=== PATIENT | female | born 2000 | race Caucasian/White ===

== ENCOUNTER 2021-06-29 17:46 | Emergency (ER) | payer OTHER ==
[~2021-06-29] VITALS: Ht 157.5 cm; Wt 79.5 kg
[2021-06-29] MEDS ORDERED: NEXP1IMP SC (17:53)
[2021-06-29] MEDS ORDERED: IBUP200T46 PO (17:53)
[2021-06-29] MEDS ORDERED: CELE20TA PO (17:53)
[2021-06-29 19:06] LABS: BASO % 0.3 % (0.0-1.0); EOS # 0.1 10^3/uL (0.0-0.5); EOS % 0.9 % (0.0-3.0); LYMPH # 3.2 10^3/uL (1.5-5.0); LYMPH % 30.3 % (24.0-44.0); MEAN CORPUSCULAR HEMOGLOBIN 29.1 pg (27.0-33.0); MEAN CORPUSCULAR HGB CONC 33.3 g/dl (32.0-36.5); MEAN CORPUSCULAR VOLUME 87.3 fl (80.0-96.0); MONO # 0.6 10^3/uL (0.0-0.8); MONO % 5.5 % (2.0-8.0); NEUTROPHILS # 6.6 10^3/uL (1.5-8.5); NEUTROPHILS % 62.8 % (36.0-66.0); PLATELET COUNT, AUTOMATED 381 10^3/uL (150-450); RED BLOOD COUNT 4.81 10^6/uL (4.00-5.40); WHITE BLOOD COUNT 10.5 10^3/uL (4.0-10.0)
[2021-06-29 19:33] LABS: ALBUMIN 4.2 GM/DL (3.2-5.2); ALT/SGPT 41 U/L (12-78); BILIRUBIN,DIRECT 0.1 MG/DL (0.0-0.2); BILIRUBIN,TOTAL 0.8 MG/DL (0.2-1.0); BLOOD UREA NITROGEN 11 MG/DL (7-18); CALCIUM LEVEL 9.3 MG/DL (8.5-10.1); CARBON DIOXIDE LEVEL 28 MEQ/L (21-32); CHLORIDE LEVEL 106 MEQ/L (98-107); CREATININE FOR GFR 0.77 MG/DL (0.55-1.30); GLOMERULAR FILTRATION RATE > 60.0 (>60); GLUCOSE, FASTING 80 MG/DL (70-100); LIPASE 71 U/L (73-393); POTASSIUM SERUM 4.3 MEQ/L (3.5-5.1); SODIUM LEVEL 139 MEQ/L (136-145); TOTAL PROTEIN 8.2 GM/DL (6.4-8.2)
[2021-06-29 19:34] LABS: HCG, SERUM QUALITATIVE NEGATIVE (NEGATIVE)
[2021-06-29] MEDS ORDERED: KETOROLAC TROMETHAMINE 10 MG TAB PO ONE (20:05)
[2021-06-29 20:17] LABS: C REACTIVE PROTEIN QUANTITATIV 1.03 MG/DL (0.00-0.30)
[2021-06-29 20:45] LABS: ERYTHROCYTE SEDIMENTATION RATE 8 mm/hr (0-20)
[2021-06-29] MEDS ORDERED: ISOVUE-370 76% 100ML VIAL As Ordered ONE (21:13)
[2021-06-29 21:19] LABS: GLUCOSE, URINE (UA) MANUAL NEGATIVE (NEGATIVE); KETONE, URINE MANUAL 2+ mg/dL (NEGATIVE); UROBILINOGEN, URINE MANUAL NORMAL (NORMAL)
[2021-06-29 21:20] LABS: BILIRUBIN, URINE MANUAL NEGATIVE (NEGATIVE)
[2021-06-29 21:27] LABS: RBC, URINE 0-1 /hpf (0-3)
[2021-06-29 21:28] LABS: AMORPHOUS SEDIMENT, URINE SMALL AMOUNT (NEGATIVE); BACTERIA, URINE NONE SEEN; HYALINE CAST, URINE NONE SEEN /lpf (0-1); SQUAMOUS EPITHELIAL CELL URINE MOD AMOUNT /hpf (SMALL AMT)
[2021-06-29 22:48] LABS: GC DNA AMPLIFICATION NEGATIVE (NEGATIVE)
[2021-06-29] MEDS ORDERED: IBUP80TA PO (22:56)
[2021-06-29 23:41] VITALS: BP 136/78
== END 2021-06-29 23:52 | disposition home or self-care (01) ==
LOC: M ED 17:46
DX: S39.011A Strain of muscle, fascia and tendon of abdomen, initial encounter (principal); X58.XXXA Exposure to other specified factors, initial encounter; Y92.9 Unspecified place or not applicable; Y93.9 Activity, unspecified; Y99.9 Unspecified external cause status; M48.061 Spinal stenosis, lumbar region without neurogenic claudication; M51.26 Other intervertebral disc displacement, lumbar region; R11.0 Nausea; R19.7 Diarrhea, unspecified; Z79.899 Other long term (current) drug therapy
CPT/HCPCS: 36415; 74177; 76830; 76856; 76857; 80048; 80076; 81000; 81015; 83690; 84703; 85025; 85652; 86140; 87086; 87210; 87808; 87810; 87850; 93976; 99284; Q9967

== ENCOUNTER 2023-08-08 20:12 | Emergency (ER) | payer OTHER ==
[~2023-08-08] VITALS: Ht 157.5 cm; Wt 83.1 kg
[~2023-08-08 20:12] MED LIST: CELE20TA PO; ETON68IM SC; IBUP200T46 PO; IBUP80TA PO
[2023-08-08 22:11] LABS: BASO # 0.1 10^3/uL (0.0-0.2); BASO % 0.4 % (0.0-1.0); EOS # 0.2 10^3/uL (0.0-0.5); EOS % 1.3 % (0.0-3.0); HEMATOCRIT 36.7 % (36.0-47.0); HEMOGLOBIN 12.6 g/dl (12.0-15.5); LYMPH # 3.5 10^3/uL (1.5-5.0); LYMPH % 28.5 % (24.0-44.0); MEAN CORPUSCULAR HEMOGLOBIN 30.3 pg (27.0-33.0); MEAN CORPUSCULAR HGB CONC 34.3 g/dl (32.0-36.5); MEAN CORPUSCULAR VOLUME 88.2 fl (80.0-96.0); MONO # 0.8 10^3/uL (0.0-0.8); MONO % 6.6 % (2.0-8.0); NEUTROPHILS # 7.7 10^3/uL (1.5-8.5); PLATELET COUNT, AUTOMATED 398 10^3/uL (150-450); RED BLOOD COUNT 4.16 10^6/uL (4.00-5.40); WHITE BLOOD COUNT 12.2 10^3/uL (4.0-10.0)
[2023-08-08 22:35] VITALS: BP 114/71; TEMP 97.3; O2SAT 98
[2023-08-08 22:45] LABS: BLOOD UREA NITROGEN 10 MG/DL (9-23); CALCIUM LEVEL 9.1 MG/DL (8.5-10.1); CARBON DIOXIDE LEVEL 27 MMOL/L (20-31); CHLORIDE LEVEL 104 MMOL/L (98-107); CREATININE FOR GFR 0.55 MG/DL (0.55-1.30); GLOMERULAR FILTRATION RATE > 60.0 (>60); GLUCOSE, FASTING 90 MG/DL (60-100); SODIUM LEVEL 138 MMOL/L (136-145)
== END 2023-08-09 00:57 | disposition home or self-care (01) ==
LOC: M ED 20:12
DX: O20.0 Threatened abortion (principal); F32.A Depression, unspecified; F41.9 Anxiety disorder, unspecified; Z91.010 Allergy to peanuts; Z79.899 Other long term (current) drug therapy; Z3A.01 Less than 8 weeks gestation of pregnancy

== ENCOUNTER 2024-03-05 21:09 | Emergency (ER) | payer OTHER ==
[2024-03-05 21:29] VITALS: TEMP 97.5
[2024-03-05 21:57] LABS: BASO % 0.2 % (0.0-1.0); EOS # 0.1 10^3/uL (0.0-0.5); EOS % 1.1 % (0.0-3.0); HEMATOCRIT 32.3 % (36.0-47.0); HEMOGLOBIN 11.2 g/dl (12.0-15.5); LYMPH # 2.6 10^3/uL (1.5-5.0); LYMPH % 21.2 % (24.0-44.0); MEAN CORPUSCULAR HEMOGLOBIN 30.8 pg (27.0-33.0); MEAN CORPUSCULAR HGB CONC 34.7 g/dl (32.0-36.5); MEAN CORPUSCULAR VOLUME 88.7 fl (80.0-96.0); MONO # 0.8 10^3/uL (0.0-0.8); MONO % 6.4 % (2.0-8.0); NEUTROPHILS # 8.7 10^3/uL (1.5-8.5); NEUTROPHILS % 70.8 % (36.0-66.0); PLATELET COUNT, AUTOMATED 328 10^3/uL (150-450); RED BLOOD COUNT 3.64 10^6/uL (4.00-5.40); WHITE BLOOD COUNT 12.2 10^3/uL (4.0-10.0)
[2024-03-05] MEDS: CitaloPRAM (CeleXA) 20 MG TAB PO ONE (22:11)
[2024-03-05] MEDS ORDERED: CELE20TA PO (23:41)
[2024-03-05 23:45] VITALS: BP 102/60; O2SAT 99
== END 2024-03-05 23:51 | disposition home or self-care (01) ==
LOC: EDBD 21:09 → M ED 21:09
DX: O26.892 Other specified pregnancy related conditions, second trimester (principal); R42 Dizziness and giddiness; F19.230 Other psychoactive substance dependence with withdrawal, uncomplicated; F32.9 Major depressive disorder, single episode, unspecified; Z91.018 Allergy to other foods; Z79.899 Other long term (current) drug therapy; Z3A.21 21 weeks gestation of pregnancy

== ENCOUNTER 2024-04-06 18:54 | Outpatient (CLI) | payer OTHER ==
[~2024-04-06] VITALS: Ht 157.5 cm; Wt 91.3 kg
[2024-04-06 19:14] VITALS: BP 122/71
[2024-04-06] MEDS ORDERED: PRENTAB9 PO (19:17)
[2024-04-06] MEDS ORDERED: NOXI1TAB PO (19:17)
[2024-04-06] MEDS ORDERED: IRON27TA2 PO (19:17)
[2024-04-06] MEDS ORDERED: VITA100T59 PO (19:17)
[2024-04-06 21:26] LABS: APPEARANCE, URINE CLEAR (CLEAR); BACTERIA, URINE AUTO NEGATIVE (NEGATIVE); BILIRUBIN, URINE AUTO NEGATIVE (NEGATIVE); BLOOD, URINE BLOOD 2+ (NEGATIVE); COLOR, URINE YELLOW (YELLOW); GLUCOSE, URINE (UA) AUTO NEGATIVE (NEGATIVE); KETONE, URINE AUTO NEGATIVE (NEGATIVE); LEUKOCYTE ESTERASE, URINE AUTO NEGATIVE (NEGATIVE); MUCUS, URINE SMALL (NEGATIVE); NITRITE, URINE AUTO NEGATIVE (NEGATIVE); PROTEIN, URINE AUTO NEGATIVE (NEGATIVE); RBC, URINE AUTO 4 /HPF (0-3); SPECIFIC GRAVITY URINE AUTO 1.009 (1.002-1.035); SQUAMOUS EPITHELIAL CELL UR AU 1 /HPF (0-6); TRANSITIONAL EPITHELIAL AUTO <1 /HPF; UROBILINOGEN, URINE AUTO 0.2 mg/dL (0.0-2.0); WBC, URINE AUTO 1 /HPF (0-3)
== END 2024-04-06 21:38 | disposition home or self-care (01) ==
LOC: M LDO 18:54
PROVIDERS: ATTEND Specialist
DX: O26.892 Other specified pregnancy related conditions, second trimester (principal); O32.1XX9 Maternal care for breech presentation, other fetus; R10.32 Left lower quadrant pain; Z3A.26 26 weeks gestation of pregnancy
CPT/HCPCS: 59025; 76815; 81001; G0463